=== PATIENT | male | born 1985 | race Caucasian/White ===

== ENCOUNTER 2018-06-10 09:28 | Emergency (ER) | payer OTHER ==
[2018-06-10 10:06] VITALS: BP 130/69
[2018-06-10] MEDS ORDERED: Tetracaine 0.5% OPTH.SOL 4 ML* 1 DROP BTL RIGHT EYE ONE (10:13)
--- NOTE | 2018-06-10 10:28 | UC ---
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 when it occurred Td up to date occurred at work - History of Current Complaint Chief Complaint: UCEye Stated Complaint: RT EYE COMPLAINT Time Seen by Provider: 06/10/18 09:34 Hx Obtained From: Patient Onset/Duration: Sudden Onset, Lasting Hours Timing: Constant Severity Initially: Mild Severity Currently: Mild Pain Intensity: 2 Pain Scale Used: 0-10 Numeric Location of Injury: Conjunctiva Character: Foreign Body Sensation Aggravating Factor(s): Nothing Alleviating Factor(s): Nothing Associated Signs And Symptoms: Positive: Photophobia, Drainage (Clear) - tearing Related History: Diagnosed As: - corneal FB Eyes: 1 - fb - Risk Factors Penetrating Injury Risk Factor: Negative Globe Rupture Risk Factors: Negative Acute Glaucoma Risk Factors: Negative Optic Artery Occlusion Risk Factors: Negative - Allergies/Home Medications Allergies/Adverse Reactions: Allergies Allergy/AdvReac Type Severity Reaction Status Date / Time doxycycline Allergy Rash Verified 06/10/18 10:07 shellfish derived Allergy Swelling Verified 06/10/18 10:07 Of Face,Lips,& Throat PMH/Surg Hx/FS Hx/Imm Hx Previously Healthy: Yes - Surgical History Surgical History: Yes Surgery Procedure, Year, and Place: right arm surgery, back surgery, [id number] lami - Family History Known Family History: Positive: Hypertension, Non-Contributory - Social History Alcohol Use: Occasionally Substance Use Type: None Smoking Status (MU): Never Smoked Tobacco - Immunization History Most Recent Tetanus Shot: within 2 years Review of Systems All Other Systems Reviewed And Are Negative: Yes Constitutional: Positive: Negative Skin: Positive: Negative Eyes: Positive: Eye Redness, Photophobia ENT: Positive: Negative Respiratory: Positive: Negative Cardiovascular: Positive: Negative Gastrointestinal: Positive: Negative Genitourinary: Positive: Negative Motor: Positive: Negative Neurovascular: Positive: Negative Musculoskeletal: Positive: Negative Neurological: Positive: Negative Psychological: Positive: Negative Physical Exam Vital Signs: Initial Vital Signs Temp 98.3 F 06/10/18 09:58 Pulse 66 04/13/19 09:58 Resp 16 06/10/18 09:58 BP 130/69 06/10/18 09:58 Pulse Ox 100 06/10/18 09:58 Eye Complaint Course/Dx - Differential Dx/Diagnosis Provider Diagnosis: Foreign body of right cornea, Corneal rust ring of right eye Discharge - Sign-Out/Discharge Documenting (check all that apply): Patient Departure All imaging exams completed and their final reports reviewed: No Studies - Discharge Plan Condition: Stable Disposition: HOME Patient Education Materials: Eye Foreign Body (ED) Referrals: Jhon Chapa MD [Medical Doctor] - As Soon As Possible () Freida Dan MD [Medical Doctor] - As Soon As Possible Additional Instructions: A tiny foreign body was removed from your right cornea Your eye will remain irritated today bur should feel much improved by tomorrow You have a residual RUST RING. I suggest you follow up with an eye doctor early in the week - Billing Disposition and Condition Condition: STABLE Disposition: Home
== END 2018-06-10 10:42 | disposition home or self-care (01) ==
LOC: UCCORT 09:28
DX: T15.01XA Foreign body in cornea, right eye, initial encounter (principal); Z91.013 Allergy to seafood; Z88.8 Allergy status to other drugs, medicaments and biological substances; X58.XXXA Exposure to other specified factors, initial encounter
CPT/HCPCS: 65220; 99202; A9270-GY; G0463